=== PATIENT | female | born 1990 | race Caucasian/White ===

== ENCOUNTER 2019-05-01 13:37 | Emergency (ER) | payer OTHER, SELFPAY ==
[2019-05-01 13:49] VITALS: BP 119/65; PULSE 92; RESP 18; TEMP 36.6; O2SAT 96; BMI 28.3
--- NOTE | 2019-05-01 13:49 | ED_ITS ---
Entered by Luh Streeter, acting as scribe for Eduardo Haley DO May 01, 2019 13:37 HPI - SOB/Dyspnea General: Chief Complaint: General Medical, Adult Stated Complaint: congested Time Seen by Provider: 05/01/19 13:40 Source: patient Mode of arrival: ambulatory Limitations: no limitations History of Present Illness: HPI Narrative: 29 yo Female presents to ED with complaint of shortness of breath. Pt states that she has had a cough, cold, and congestion for about 2 weeks. Pt states that she has had clear and yellow mucus. MD elicited complaint: shortness of breath and cough Onset (ago): week(s) (2) Context: recent illness Timing: constant Severity: mild Exacerbating factors: nothing Relieving factors: nothing Associated symptoms: Reports chest congestion and cough Review of Systems General: Reports: 10 or more systems reviewed and unremarkable except in HPI and below ENMT: Reports: nasal discharge Resp: Reports: shortness of breath, productive cough (clear and yellow sputum) and chest congestion PFSH ED PFSH: Statuses (acute, chronic, etc) shown below reflect problem list status as previously entered and may not be historically accurate Social History Smoking and tobacco status: current every day smoker Physical Exam Const: COMMON NORMALS: no apparent distress, average body habitus, oriented x3, no limitations, healthy appearing, alert and well nourished HENMT: COMMON NORMALS: normocephalic, head/scalp atraumatic, hearing grossly normal bilaterally, external ears normal, EAC's normal, TM's normal bilaterally, external nose normal, nasal mucous membranes and turbinates normal, moist oral mucous membranes, oropharynx normal, dentition normal and gingiva normal HEAD & SCALP: normocephalic and atraumatic NOSE: external nose normal and nasal mucous membranes and turbinates normal EXTERNAL EAR: Yes external ears normal EXTERNAL AUDITORY CANAL: EAC's normal TYMPANIC MEMBRANE: TM's normal bilaterally Eye: COMMON NORMALS: PERRL, EOMs intact bilaterally, conjunctivae normal, no scleral icterus, no papilledema, normal visual luevano by confrontation and fundi normal bilaterally CONJUNCTIVA: Yes conjunctivae normal PUPIL: Yes PERRL DIRECT OPHTHALMOSCOPY: Yes no papilledema and Yes fundi normal bilaterally Neck/C-Spine: COMMON NORMALS: full ROM, no lymphadenopathy, supple, no meningeal signs, no JVD, thyroid normal and no carotid bruits THYROID: thyroid normal Chest: COMMONS NORMALS: inspection of chest normal and palpation of chest normal Resp: COMMON NORMALS: normal respiratory effort, no retractions, no use of acc essory muscles and percussion normal AUSCULTATION: diminished lung sounds (markedly diminished breath sounds on the left) on the left PERCUSSION: percussion normal Cardio: COMMON NORMALS: no JVD, regular rate, regular rhythm, S1 normal heart sound, S2 normal heart sound, no gallops, no clicks, no murmurs, no rub and peripheral pulses 2+ throughout RATE: regular rate RHYTHM: regular rhythm HEART SOUNDS: S1 normal and S2 normal PERIPHERAL PULSES: pulses 2+ throughout GI: COMMON NORMALS: normal to inspection, nondistended, normoactive bowel sounds, soft to palpation, non-tender, no hepatosplenomegaly, no masses and no bruits PALPATION: Yes soft and Yes no hepatosplenomegaly : COMMON NORMALS: Yes no CVA tenderness and Yes external appearance normal BLADDER/KIDNEY EXAM: Yes no CVA tenderness Back/Pelvis: COMMON NORMALS: no CVA tenderness, thoracic and lumbar spine normal to inspection, no thoracic nor lumbar tenderness, thoraco-lumbar ROM normal and straight leg raise negative bilaterally Extremity: COMMON NORMALS: normal to inspection, full ROM, normal capillary refill, no joint enlargement, no clubbing, cyanosis or edema, no calf tenderness and no pedal edema Neuro: COMMON NORMALS: oriented x3 SENSORIUM/ORIENTATION: Yes alert MENINGEAL SIGNS: Yes no meningeal signs Skin: COMMON NORMALS: no rashes or lesions noted, no wounds, skin turgor normal, no jaundice, no petechiae and no mottling GENERAL SKIN EXAM: no rashes or lesions noted and turgor normal Course Vital Signs: Vital signs: Vital Signs Temperature 97.9 F 05/01/19 13:49 Pulse Rate 92 05/01/19 13:49 Respiratory Rate 18 05/01/19 13:49 Blood Pressure 119/65 05/01/19 13:49 Pulse Oximetry 96 05/01/19 13:49 Discharge Plan Discharge Patient Disposition: Home, Self-Care Clinical Impression: Sinusitis, acute Qualifiers: Sinusitis location: unspecified location Recurrence: non-recurrent Qualified Code(s): J01.90 - Acute sinusitis, unspecified Upper respiratory infection Qualifiers: URI type: unspecified viral URI Qualified Code(s): J06.9 - Acute upper respiratory infection, unspecified Condition: Stable Prescriptions: New sulfamethoxazole-trimethoprim [Bactrim DS] 800-160 mg tablet 1 tab PO Q12H 10 Days Qty: 20 RF: 0 methylprednisolone [Medrol (Eric)] 4 mg tablets,dose pack See Rx Instructions .ROUTE .COMPLEX Qty: 21 RF: 0 No Action sertraline 100 mg tablet 200 mg PO BEDTIME RF: 0 lorazepam 1 mg tablet 1 mg PO Q8H PRN (Reason: Anxiety) RF: 0 propranolol 20 mg tablet 20 mg PO BID RF: 0 Discharge Orders: Discharge Order (Routine); Ordered 05/01/19 Ordered By: Eduardo Haley Referrals: Alon Galeano MD [Primary Care Provider] - Coding Level of Care Code ED Photographic Laboratory Technician for Chg Fwd Exam Problem Focused The documentation recorded by the Syl codrova Carmen, accurately reflects the service I personally performed and the decisions made by Tera leyva Donald P, DO May 01, 2019 13:37
--- NOTE | 2019-05-01 13:52 | XRR_ITS ---
PROCEDURE INFORMATION: Exam: XR Chest, 2 Views Exam date and time: 05/01/2019 2:08 PM Age: 29 years old Clinical indication: Cough; Additional info: Dyspnea TECHNIQUE: Imaging protocol: XR of the chest Views: 2 views. COMPARISON: CR Chest 1 [place] [id number] 03/15/2019 9:40 PM FINDINGS: Lungs: Unremarkable. No consolidation. Pleural space: Unremarkable. No pleural effusion. No pneumothorax. Heart/Mediastinum: Unremarkable. No cardiomegaly. Bones/joints: Unremarkable. XR/XR chest 2V* [id number] IMPRESSION: No acute findings.
--- NOTE | 2019-05-01 14:00 | PC.NURSE ---
Pt to xray
[2019-05-01 14:28] VITALS: BP 119/65; PULSE 92; RESP 18; TEMP 36.6; O2SAT 96
== END 2019-05-01 14:33 | disposition home or self-care (01) ==
PROVIDERS: Emergency Provider Family Medicine; Family Provider Family Medicine; PCP Family Medicine
DX: J01.90 Acute sinusitis, unspecified (principal); F17.210 Nicotine dependence, cigarettes, uncomplicated
CPT/HCPCS: 71046; 99281

== ENCOUNTER → 2019-05-30 16:00 | Outpatient (BNVA) | payer OTHER, SELFPAY | PROVIDERS: Family Provider Family Medicine; PCP Family Medicine; Visit Provider Nurse Practitioner | DX: R50.9 Fever, unspecified (principal); Z20.828 Contact with and (suspected) exposure to other viral communicable diseases | CPT/HCPCS: 87804 ==

== ENCOUNTER → 2020-03-13 14:28 | Outpatient (BNVA) | payer SELFPAY | PROVIDERS: Family Provider Family Medicine; PCP Family Medicine; Visit Provider Nurse Practitioner Family | DX: Z20.828 Contact with and (suspected) exposure to other viral communicable diseases (principal); J06.9 Acute upper respiratory infection, unspecified | CPT/HCPCS: 87635 ==

== ENCOUNTER 2020-03-18 16:48 | Emergency (ER) | payer OTHER, SELFPAY ==
[2020-03-18] VITALS (8 sets, daily range): BP systolic 109–132; BP diastolic 69–88; PULSE 92–133; RESP 12–20; TEMP 36.8; O2SAT 94–97; BMI 33.7
--- NOTE | 2020-03-18 17:02 | ECG_ITS ---
[facility] Test Date: 2020-03-18 Pat Name: Loly Kee Department: Room: Gender: Female Customer Service Clerk: : 1990 Requested By: Sinai Hoover Order Number: [id number] Digna MD: Hira You M.D. Measurements Intervals [place] Rate: 137 P: 69 UT: 116 QRS: 42 QRSD: 78 T: 49 QT: 330 QTc: 500 Interpretive Statements SINUS TACHYCARDIA WITH SHORT UT INTERVAL NONSPECIFIC ST & T-WAVE ABNORMALITY ABNORMAL RHYTHM ECG Compared to ECG 01/10/2019 13:53:31 Short UT interval now present Sinus rhythm no longer present T-wave abnormality still present Electronically Signed On 03-18-2020 18:37:47 [employer]EN[employer] REPAIRER by Hira You M.D. [id number]
--- NOTE | 2020-03-18 17:50 | ED_ITS ---
Documented by User: Lolita Linton 03/18/20 18:01 HPI - SOB/Dyspnea General: Chief Complaint: Shortness of Breath/Dyspnea Stated Complaint: SOB,nausea,cough Time Seen by Provider: 03/18/20 17:11 Source: patient Mode of arrival: ambulatory Limitations: no limitations History of Present Illness: HPI Narrative: Loly is a 30-year-old female who comes in complaining of a panic attack. Patient states she is recently switched from sertraline to Effexor and in the process is becoming more more prone to panic attacks. She states she feels anxious and scared. Patient also complains of intermittent left lower quadrant pain. She denies any vaginal discharge or bleeding. She denies any fevers or chills. Associated symptoms: Reports chest pain and palpitations; Deny abdominal pain, chest congestion, diaphoresis, dizziness, extremity pain, fever(s), hemoptysis, lightheadedness, nausea, orthopnea, syncope or vomiting Review of Systems Const: Denies: fever(s), chills, body aches, fatigue, malaise or diaphoresis Eyes: Denies: change in vision, blurry vision, photophobia, eye discomfort, eye discharge, eye redness or yellow eyes ENMT: Denies: throat pain, odynophagia, hoarseness, swelling of lips/tongue, ear or mastoid pain, ear discharge, change in hearing or nasal discharge Card: Reports: chest pain and palpitations; Denies: irregular heart rhythm, edema, lightheadedness, syncope, pre-syncope, dyspnea on exertion or orthopnea Resp: Denies: dyspnea, productive cough, non-productive cough, wheezing, hemoptysis or chest congestion GI: Denies: abdominal pain, nausea, vomiting, hematemesis, coffee ground emesis, heartburn, diarrhea, constipation, GI cramping, hematochezia or melena : Denies: flank pain, dysuria, urinary frequency, urinary urgency or hematuria Musc: Denies: neck pain, back pain, extremity pain, extremity swelling, joint pain, joint swelling, joint redness, joint warmth or joint stiffness Skin/Breast: Denies: rash, pruritus, erythema, skin pain or skin tenderness Neuro: Denies: headache(s), numbness in extremities, weakness in extremities, sensory changes, lack of coordination, difficulty walking, dizziness, vertigo, confusion, Slurred speech present or seizure-like activity César/Lymph: Denies: easy bruising, easy bleeding, petechiae, purpura or enlarged lymph nodes All/Imm: Denies: urticaria, throat swelling, tongue swelling, facial swelling or acute wheezing PFSH ED PFSH: Social History Smoking and tobacco status: current every day smoker Physical Exam Const: COMMON NORMALS: no acute distress, patient oriented x3, no limitations and alert GENERAL APPEARANCE: cooperative HENMT: COMMON NORMALS: normocephalic, atraumatic, external ears normal, EAC's normal and Normal external nose present HEAD & SCALP: normal to inspection, normocephalic and atraumatic FACE & SINUS: normal facial exam and face symmetric NOSE: Normal external nose present and Normal nares present EXTERNAL EAR: Yes external ears normal EXTERNAL AUDITORY CANAL: EAC's normal MOUTH: Normal oral and palatal mucosa present, lip normal and tongue normal Eye: COMMON NORMALS: Equal, round and reactive pupils present and conjunctivae normal GENERAL EYE: appearance normal, both eyes and all related structures ALIGNMENT: Yes alignment normal PERIORBITAL: periorbital findings normal EYELID: eyelids normal CONJUNCTIVA: Yes conjunctivae normal SCLERA: sclerae normal PUPIL: Yes Equal, round and reactive pupils present Neck/C-Spine: COMMON NORMALS: full ROM, no lymphadenopathy, supple, no meningeal signs and no JVD GENERAL: Yes normal visual inspection and Yes trachea midline Chest: COMMONS NORMALS: normal inspection of the chest and normal palpation of entire chest wall Resp: COMMON NORMALS: normal respiratory effort, No retractions, No use of accessory muscles and clear to auscultation bilaterally EFFORT & INSPECTION: Yes able to speak in complete sentences and Yes symmetric chest movement AUSCULTATION: clear to auscultation bilaterally, no crackles, no rales, no rhonchi and no wheezes Cardio: COMMON NORMALS: no JVD, regular rate, regular rhythm, S1 normal heart sound present and S2 normal heart sound present RATE: regular rate RHYTHM: regular rhythm HEART SOUNDS: S1 normal heart sound present, S2 normal heart sound present, no click, no gallops, no murmurs and no rubs GI: COMMON NORMALS: Soft to palpation and No hepatosplenomegaly present PALPATION: Yes Soft to palpation, No Tenderness to palpation present (GI), No Guarding due to palpation present (GI), No Rigid due to palpation, Yes No hepatosplenomegaly present, No Hernia present, No Palpable mass present and No Pulsatile mass present : COMMON NORMALS: Yes no CVA tenderness BLADDER/KIDNEY EXAM: Yes no CVA tenderness EXTERNAL FEMALE EXAM: No Hernia present Back/Pelvis: COMMON NORMALS: no CVA tenderness, thoracic and lumbar spine normal to inspection, no thoracic nor lumbar tenderness and thoraco-lumbar ROM normal Extremity: COMMON NORMALS: normal to inspection, full ROM, capillary refill normal, no joint enlargement, no clubbing, cyanosis or edema and no calf tenderness Neuro: COMMON NORMALS: patient oriented x3, CN's II-XII intact bilaterally, moves all extremities, no focal motor deficits and no sensory deficits noted SENSORIUM/ORIENTATION: Yes alert MENINGEAL SIGNS: Yes no meningeal signs SPEECH: speech normal Psych: COMMON NORMALS: mental status grossly normal, Normal thought process present, cooperative, normal affect, speech normal and activity/motor behavior normal SPEECH: Yes normal speech THOUGHT PROCESS: Normal thought process present Skin: COMMON NORMALS: no rashes or lesions noted, turgor normal, no jaundice, no petechiae and no mottling GENERAL SKIN EXAM: no rashes or lesions noted and turgor normal Course Vital Signs: Vital signs: Vital Signs Temperature 98.2 F 03/18/20 16:58 Pulse Rate 92 03/18/20 22:17 Respiratory Rate 16 03/18/20 22:17 Blood Pressure 117/76 03/18/20 22:17 Pulse Oximetry 97 03/18/20 22:17 MDM - SOB/Dyspnea Lab Data: Labs: Lab Results 03/18/20 03/18/20 03/18/20 Range/Units 18:20 18:20 18:20 WBC 16.4 H (4.0-10.0) 10^3/ uL RBC 4.78 (4.1-5.3) 10^6/u L Hgb 14.6 (11.5-15.3) g/dL Hct 43.4 (37.0-47.0) % MCV 90.8 (81-99) fL MCH 30.5 (28.0-34.0) pg MCHC 33.6 (30.0-36.0) g/dL RDW 13.0 (12.1-15.1) % Plt Count 352 (130-400) 10^3/c mm MPV 10.3 (7.4-10.4) fL Neut % (Auto) 76.5 % Lymph % (Auto) 15.7 % [place] % (Auto) 6.2 % Eos % (Auto) 0.8 % Baso % (Auto) 0.5 % Neut # (Auto) 12.55 H (1.8-7.7) 10^3/u L Lymph # (Auto) 2.6 (0.8-4.8) 10^3/u L [place] # (Auto) 1.0 H (0.2-0.9) 10^3/u L Eos # (Auto) 0.1 (0.0-0.8) 10^3/u L Baso # (Auto) 0.1 (0.0-0.1) 10^3/u L Nucleated RBC % (a uto) 0 % Nucleated RBCs # 0.0 /100WBC D-Dimer (0-0.59) ug/mIFE U Sodium 139 (136-145) mmol/L Potassium 3.9 (3.5-5.1) mmol/L Chloride 103 (98-107) mmol/L Carbon Dioxide 22 (22-29) mmol/L Anion Gap 17.9 (5-19) BUN 6 (6-20) mg/dL Creatinine 0.5 (0.5-0.9) mg/dL GFR Calculation 146.9 H (90-130) mL/min Glucose 95 (65-115) mg/dL Calculated Osmolal ity 285 (285-295) mOsm/k g Lactic Acid 0.9 (0.5-2.2) mmol/L Calcium 9.5 (8.5-10.5) mg/dL Magnesium 2.0 (1.7-2.3) mg/dL Total Bilirubin 0.3 (0.15-1.2) mg/dL AST 14 (0-32) U/L ALT 16 (0-33) U/L Alkaline Phosphata se 59 (35-105) IU/L Creatine Kinase 79 (26-192) U/L Troponin T Baselin e (0-10) ng/L Total Protein 7.1 (6.6-8.7) g/dL Albumin 4.8 (3.5-5.2) g/dL Globulin 2.3 (1.3-4.6) g/dL Lipase 17 (13-60) U/L TSH (0.27-4.20) uIU/ mL HCG, Qual (Negative) Urine Color (Yellow) Urine Appearance (CLEAR) Urine pH (5-7) Ur Specific Gravit y (1.005-1.030) Urine Protein (Negative) Urine Glucose (UA) (Normal) Urine Ketones (Negative) Urine Blood (Negative) Urine Nitrate (Negative) Urine Bilirubin (Negative) Urine Urobilinogen (Negative) mg/dL Ur Leukocyte Chana ase (Negative) Urine RBC (0-2) /hpf Urine WBC (0-5) /hpf Ur Squamous Epith Cells (0-5) /hpf Ur Transition Epit h Cell /hpf Amorphous Sediment Urine Bacteria (NONE) /hpf Urine Mucus /hpf Urine Yeast /hpf 03/18/20 03/18/20 03/18/20 Range/Units 18:20 18:20 18:23 WBC (4.0-10.0) 10^3/ uL RBC (4.1-5.3) 10^6/u L Hgb (11.5-15.3) g/dL Hct (37.0-47.0) % MCV (81-99) fL MCH (28.0-34.0) pg MCHC (30.0-36.0) g/dL RDW (12.1-15.1) % Plt Count (130-400) 10^3/c mm MPV (7.4-10.4) fL Neut % (Auto) % Lymph % (Auto) % [place] % (Auto) % Eos % (Auto) % Baso % (Auto) % Neut # (Auto) (1.8-7.7) 10^3/u L Lymph # (Auto) (0.8-4.8) 10^3/u L [place] # (Auto) (0.2-0.9) 10^3/u L Eos # (Auto) (0.0-0.8) 10^3/u L Baso # (Auto) (0.0-0.1) 10^3/u L Nucleated RBC % (a uto) % Nucleated RBCs # /100WBC D-Dimer (0-0.59) ug/mIFE U Sodium (136-145) mmol/L Potassium (3.5-5.1) mmol/L Chloride (98-107) mmol/L Carbon Dioxide (22-29) mmol/L Anion Gap (5-19) BUN (6-20) mg/dL Creatinine (0.5-0.9) mg/dL GFR Calculation (90-130) mL/min Glucose (65-115) mg/dL Calculated Osmolal ity (285-295) mOsm/k g Lactic Acid (0.5-2.2) mmol/L Calcium (8.5-10.5) mg/dL Magnesium (1.7-2.3) mg/dL Total Bilirubin (0.15-1.2) mg/dL AST (0-32) U/L ALT (0-33) U/L Alkaline Phosphata se (35-105) IU/L Creatine Kinase (26-192) U/L Troponin T Baselin e 6 (0-10) ng/L Total Protein (6.6-8.7) g/dL Albumin (3.5-5.2) g/dL Globulin (1.3-4.6) g/dL Lipase (13-60) U/L TSH (0.27-4.20) uIU/ mL HCG, Qual Negative (Negative) Urine Color Yellow (Yellow) Urine Appearance Sl hazy (CLEAR) Urine pH 6.0 (5-7) Ur Specific Gravit y 1.015 (1.005-1.030) Urine Protein Neg (Negative) Urine Glucose (UA) Norm (Normal) Urine Ketones 2+ H (Negative) Urine Blood 2+ H (Negative) Urine Nitrate Negative (Negative) Urine Bilirubin 1+ H (Negative) Urine Urobilinogen Norm (Negative) mg/dL Ur Leukocyte Chana ase 2+ H (Negative) Urine RBC 0-4 H (0-2) /hpf Urine WBC 0-4 H (0-5) /hpf Ur Squamous Epith Cells 15-25 H (0-5) /hpf Ur Transition Epit h Cell 40-55 /hpf Amorphous Sediment Not Reportable Urine Bacteria 1+ H (NONE) /hpf Urine Mucus 2+ /hpf Urine Yeast 1+ H /hpf 03/18/20 03/18/20 Range/Units 18:30 18:30 WBC (4.0-10.0) 10^3/ uL RBC (4.1-5.3) 10^6/u L Hgb (11.5-15.3) g/dL Hct (37.0-47.0) % MCV (81-99) fL MCH (28.0-34.0) pg MCHC (30.0-36.0) g/dL RDW (12.1-15.1) % Plt Count (130-400) 10^3/c mm MPV (7.4-10.4) fL Neut % (Auto) % Lymph % (Auto) % [place] % (Auto) % Eos % (Auto) % Baso % (Auto) % Neut # (Auto) (1.8-7.7) 10^3/u L Lymph # (Auto) (0.8-4.8) 10^3/u L [place] # (Auto) (0.2-0.9) 10^3/u L Eos # (Auto) (0.0-0.8) 10^3/u L Baso # (Auto) (0.0-0.1) 10^3/u L Nucleated RBC % (a uto) % Nucleated RBCs # /100WBC D-Dimer 0.41 (0-0.59) ug/mIFE U Sodium (136-145) mmol/L Potassium (3.5-5.1) mmol/L Chloride (98-107) mmol/L Carbon Dioxide (22-29) mmol/L Anion Gap (5-19) BUN (6-20) mg/dL Creatinine (0.5-0.9) mg/dL GFR Calculation (90-130) mL/min Glucose (65-115) mg/dL Calculated Osmolal ity (285-295) mOsm/k g Lactic Acid (0.5-2.2) mmol/L Calcium (8.5-10.5) mg/dL Magnesium (1.7-2.3) mg/dL Total Bilirubin (0.15-1.2) mg/dL AST (0-32) U/L ALT (0-33) U/L Alkaline Phosphata se (35-105) IU/L Creatine Kinase (26-192) U/L Troponin T Baselin e (0-10) ng/L Total Protein (6.6-8.7) g/dL Albumin (3.5-5.2) g/dL Globulin (1.3-4.6) g/dL Lipase (13-60) U/L TSH 0.75 (0.27-4.20) uIU/ mL HCG, Qual (Negative) Urine Color (Yellow) Urine Appearance (CLEAR) Urine pH (5-7) Ur Specific Gravit y (1.005-1.030) Urine Protein (Negative) Urine Glucose (UA) (Normal) Urine Ketones (Negative) Urine Blood (Negative) Urine Nitrate (Negative) Urine Bilirubin (Negative) Urine Urobilinogen (Negative) mg/dL Ur Leukocyte Chana ase (Negative) Urine RBC (0-2) /hpf Urine WBC (0-5) /hpf Ur Squamous Epith Cells (0-5) /hpf Ur Transition Epit h Cell /hpf Amorphous Sediment Urine Bacteria (NONE) /hpf Urine Mucus /hpf Urine Yeast /hpf Discharge Plan Discharge Patient Disposition: Home Clinical Impression: Viral URI Urinary tract infection Qualifiers: Urinary tract infection type: acute cystitis Hematuria presence: without hematuria Qualified Code(s): N30.00 - Acute cystitis without hematuria Condition: Stable Prescriptions: New Bactrim DS 800-160 mg tablet 1 tab PO DAILY 7 Days Qty: 14 RF: 0 No Action lorazepam 1 mg tablet 0.5 - 1 mg PO DAILY PRN (Reason: Anxiety) RF: 0 propranolol 20 mg tablet 20 mg PO BID RF: 0 venlafaxine 75 mg capsule,extended release 24hr 75 mg PO DAILY RF: 0 Tylenol Extra Strength 500 mg Tablet 500 mg PO PRN RF: 0 montelukast 10 mg tablet 10 mg PO DAILY RF: 0 Benadryl 1 cap PO PRN RF: 0 Mucinex 1 tab PO Q4H PRN (Reason: unknown) RF: 0 Discharge Orders: Discharge Order (Routine); Ordered 03/18/20 Ordered By: Alexi Leo Referrals: Alon Galeano MD [Primary Care Provider] - 4-7 days Discharge Diet: Advance as tolerated Discharge Activity: Increase activity as tolerated Patient Instructions: Urinary Tract Infection in Women (ED) Activity Restrictions/Additional Instructions: Return for fever greater than 100 despite 2-3 doses of antibiotics, vomiting liquids or medications, worsening shortness of breath despite treatment, other concerning symptoms. Your urine should be retested in a few days to ensure that your infection is clearing. Coding Level of Care Code ED Case Management Coordinator for Chg Fwd Exam Comprehensive Documented by User: Alexi Leo DO 03/19/20 01:18 HPI - SOB/Dyspnea General: Chief Complaint: Shortness of Breath/Dyspnea Stated Complaint: SOB,nausea,cough Time Seen by Provider: 03/18/20 17:11 PFSH ED PFSH: Social History Smoking and tobacco status: current every day smoker Course Vital Signs: Vital signs: Vital Signs Temperature 98.2 F 03/18/20 16:58 Pulse Rate 92 03/18/20 22:17 Respiratory Rate 16 03/18/20 22:17 Blood Pressure 117/76 03/18/20 22:17 Pulse Oximetry 97 03/18/20 22:17 MDM - SOB/Dyspnea MDM Narrative: Medical decision making narrative: 30-year-old female checked out to me at shift change by Dr. Menard. This young lady says that she has been short of breath for several days. She was tested for Covid by PCR couple of da ys ago, and testing was negative. She has no fever, she does have a leukocytosis, but without left shift. Her chest x-ray is negative. Her D-dimer is 0.4. She is tachycardic. Her troponin is negative. There are no ST changes on her EKG. She also complains of some left lower quadrant tenderness. She does have a urinary tract infection which will be treated. Lab Data: Labs: Lab Results 03/18/20 03/18/20 03/18/20 Range/Units 18:20 18:20 18:20 WBC 16.4 H (4.0-10.0) 10^3/ uL RBC 4.78 (4.1-5.3) 10^6/u L Hgb 14.6 (11.5-15.3) g/dL Hct 43.4 (37.0-47.0) % MCV 90.8 (81-99) fL MCH 30.5 (28.0-34.0) pg MCHC 33.6 (30.0-36.0) g/dL RDW 13.0 (12.1-15.1) % Plt Count 352 (130-400) 10^3/c mm MPV 10.3 (7.4-10.4) fL Neut % (Auto) 76.5 % Lymph % (Auto) 15.7 % [place] % (Auto) 6.2 % Eos % (Auto) 0.8 % Baso % (Auto) 0.5 % Neut # (Auto) 12.55 H (1.8-7.7) 10^3/u L Lymph # (Auto) 2.6 (0.8-4.8) 10^3/u L [place] # (Auto) 1.0 H (0.2-0.9) 10^3/u L Eos # (Auto) 0.1 (0.0-0.8) 10^3/u L Baso # (Auto) 0.1 (0.0-0.1) 10^3/u L Nucleated RBC % (a uto) 0 % Nucleated RBCs # 0.0 /100WBC D-Dimer (0-0.59) ug/mIFE U Sodium 139 (136-145) mmol/L Potassium 3.9 (3.5-5.1) mmol/L Chloride 103 (98-107) mmol/L Carbon Dioxide 22 (22-29) mmol/L Anion Gap 17.9 (5-19) BUN 6 (6-20) mg/dL Creatinine 0.5 (0.5-0.9) mg/dL GFR Calculation 146.9 H (90-130) mL/min Glucose 95 (65-115) mg/dL Calculated Osmolal ity 285 (285-295) mOsm/k g Lactic Acid 0.9 (0.5-2.2) mmol/L Calcium 9.5 (8.5-10.5) mg/dL Magnesium 2.0 (1.7-2.3) mg/dL Total Bilirubin 0.3 (0.15-1.2) mg/dL AST 14 (0-32) U/L ALT 16 (0-33) U/L Alkaline Phosphata se 59 (35-105) IU/L Creatine Kinase 79 (26-192) U/L Troponin T Baselin e (0-10) ng/L Total Protein 7.1 (6.6-8.7) g/dL Albumin 4.8 (3.5-5.2) g/dL Globulin 2.3 (1.3-4.6) g/dL Lipase 17 (13-60) U/L TSH (0.27-4.20) uIU/ mL HCG, Qual (Negative) Urine Color (Yellow) Urine Appearance (CLEAR) Urine pH (5-7) Ur Specific Gravit y (1.005-1.030) Urine Protein (Negative) Urine Glucose (UA) (Normal) Urine Ketones (Negative) Urine Blood (Negative) Urine Nitrate (Negative) Urine Bilirubin (Negative) Urine Urobilinogen (Negative) mg/dL Ur Leukocyte Chana ase (Negative) Urine RBC (0-2) /hpf Urine WBC (0-5) /hpf Ur Squamous Epith Cells (0-5) /hpf Ur Transition Epit h Cell /hpf Amorphous Sediment Urine Bacteria (NONE) /hpf Urine Mucus /hpf Urine Yeast /hpf 03/18/20 03/18/20 03/18/20 Range/Units 18:20 18:20 18:23 WBC (4.0-10.0) 10^3/ uL RBC (4.1-5.3) 10^6/u L Hgb (11.5-15.3) g/dL Hct (37.0-47.0) % MCV (81-99) fL MCH (28.0-34.0) pg MCHC (30.0-36.0) g/dL RDW (12.1-15.1) % Plt Count (130-400) 10^3/c mm MPV (7.4-10.4) fL Neut % (Auto) % Lymph % (Auto) % [place] % (Auto) % Eos % (Auto) % Baso % (Auto) % Neut # (Auto) (1.8-7.7) 10^3/u L Lymph # (Auto) (0.8-4.8) 10^3/u L [place] # (Auto) (0.2-0.9) 10^3/u L Eos # (Auto) (0.0-0.8) 10^3/u L Baso # (Auto) (0.0-0.1) 10^3/u L Nucleated RBC % (a uto) % Nucleated RBCs # /100WBC D-Dimer (0-0.59) ug/mIFE U Sodium (136-145) mmol/L Potassium (3.5-5.1) mmol/L Chloride (98-107) mmol/L Carbon Dioxide (22-29) mmol/L Anion Gap (5-19) BUN (6-20) mg/dL Creatinine (0.5-0.9) mg/dL GFR Calculation (90-130) mL/min Glucose (65-115) mg/dL Calculated Osmolal ity (285-295) mOsm/k g Lactic Acid (0.5-2.2) mmol/L Calcium (8.5-10.5) mg/dL Magnesium (1.7-2.3) mg/dL Total Bilirubin (0.15-1.2) mg/dL AST (0-32) U/L ALT (0-33) U/L Alkaline Phosphata se (35-105) IU/L Creatine Kinase (26-192) U/L Troponin T Baselin e 6 (0-10) ng/L Total Protein (6.6-8.7) g/dL Albumin (3.5-5.2) g/dL Globulin (1.3-4.6) g/dL Lipase (13-60) U/L TSH (0.27-4.20) uIU/ mL HCG, Qual Negative (Negative) Urine Color Yellow (Yellow) Urine Appearance Sl hazy (CLEAR) Urine pH 6.0 (5-7) Ur Specific Gravit y 1.015 (1.005-1.030) Urine Protein Neg (Negative) Urine Glucose (UA) Norm (Normal) Urine Ketones 2+ H (Negative) Urine Blood 2+ H (Negative) Urine Nitrate Negative (Negative) Urine Bilirubin 1+ H (Negative) Urine Urobilinogen Norm (Negative) mg/dL Ur Leukocyte Chana ase 2+ H (Negative) Urine RBC 0-4 H (0-2) /hpf Urine WBC 0-4 H (0-5) /hpf Ur Squamous Epith Cells 15-25 H (0-5) /hpf Ur Transition Epit h Cell 40-55 /hpf Amorphous Sediment Not Reportable Urine Bacteria 1+ H (NONE) /hpf Urine Mucus 2+ /hpf Urine Yeast 1+ H /hpf 03/18/20 03/18/20 Range/Units 18:30 18:30 WBC (4.0-10.0) 10^3/ uL RBC (4.1-5.3) 10^6/u L Hgb (11.5-15.3) g/dL Hct (37.0-47.0) % MCV (81-99) fL MCH (28.0-34.0) pg MCHC (30.0-36.0) g/dL RDW (12.1-15.1) % Plt Count (130-400) 10^3/c mm MPV (7.4-10.4) fL Neut % (Auto) % Lymph % (Auto) % [place] % (Auto) % Eos % (Auto) % Baso % (Auto) % Neut # (Auto) (1.8-7.7) 10^3/u L Lymph # (Auto) (0.8-4.8) 10^3/u L [place] # (Auto) (0.2-0.9) 10^3/u L Eos # (Auto) (0.0-0.8) 10^3/u L Baso # (Auto) (0.0-0.1) 10^3/u L Nucleated RBC % (a uto) % Nucleated RBCs # /100WBC D-Dimer 0.41 (0-0.59) ug/mIFE U Sodium (136-145) mmol/L Potassium (3.5-5.1) mmol/L Chloride (98-107) mmol/L Carbon Dioxide (22-29) mmol/L Anion Gap (5-19) BUN (6-20) mg/dL Creatinine (0.5-0.9) mg/dL GFR Calculation (90-130) mL/min Glucose (65-115) mg/dL Calculated Osmolal ity (285-295) mOsm/k g Lactic Acid (0.5-2.2) mmol/L Calcium (8.5-10.5) mg/dL Magnesium (1.7-2.3) mg/dL Total Bilirubin (0.15-1.2) mg/dL AST (0-32) U/L ALT (0-33) U/L Alkaline Phosphata se (35-105) IU/L Creatine Kinase (26-192) U/L Troponin T Baselin e (0-10) ng/L Total Protein (6.6-8.7) g/dL Albumin (3.5-5.2) g/dL Globulin (1.3-4.6) g/dL Lipase (13-60) U/L TSH 0.75 (0.27-4.20) uIU/ mL HCG, Qual (Negative) Urine Color (Yellow) Urine Appearance (CLEAR) Urine pH (5-7) Ur Specific Gravit y (1.005-1.030) Urine Protein (Negative) Urine Glucose (UA) (Normal) Urine Ketones (Negative) Urine Blood (Negative) Urine Nitrate (Negative) Urine Bilirubin (Negative) Urine Urobilinogen (Negative) mg/dL Ur Leukocyte Hcana ase (Negative) Urine RBC (0-2) /hpf Urine WBC (0-5) /hpf Ur Squamous Epith Cells (0-5) /hpf Ur Transition Epit h Cell /hpf Amorphous Sediment Urine Bacteria (NONE) /hpf Urine Mucus /hpf Urine Yeast /hpf Discharge Plan Discharge Patient Disposition: Home Clinical Impression: Viral URI Urinary tract infection Qualifiers: Urinary tract infection type: acute cystitis Hematuria presence: without hematuria Qualified Code(s): N30.00 - Acute cystitis without hematuria Condition: Stable Prescriptions: New Bactrim DS 800-160 mg tablet 1 tab PO DAILY 7 Days Qty: 14 RF: 0 No Action lorazepam 1 mg tablet 0.5 - 1 mg PO DAILY PRN (Reason: Anxiety) RF: 0 propranolol 20 mg tablet 20 mg PO BID RF: 0 venlafaxine 75 mg capsule,extended release 24hr 75 mg PO DAILY RF: 0 Tylenol Extra Strength 500 mg Tablet 500 mg PO PRN RF: 0 montelukast 10 mg tablet 10 mg PO DAILY RF: 0 Benadryl 1 cap PO PRN RF: 0 Mucinex 1 tab PO Q4H PRN (Reason: unknown) RF: 0 Discharge Orders: Discharge Order (Routine); Ordered 03/18/20 Ordered By: Alexi Leo Referrals: Alon Galeano MD [Primary Care Provider] - 4-7 days Discharge Diet: Advance as tolerated Discharge Activity: Increase activity as tolerated Patient Instructions: Urinary Tract Infection in Women (ED) Activity Restrictions/Additional Instructions: Return for fever greater than 100 despite 2-3 doses of antibiotics, vomiting liquids or medications, worsening shortness of breath despite treatment, other concerning symptoms. Your urine should be retested in a few days to ensure that your infection is clearing. Coding Level of Care Code ED Case Management Coordinator for Chg Fwd Exam Comprehensive
--- NOTE | 2020-03-18 18:17 | XRR_ITS ---
PROCEDURE INFORMATION: Exam: XR Chest, 1 View Exam date and time: 03/18/2020 6:32 PM Age: 30 years old Clinical indication: Cough and dyspnea TECHNIQUE: Imaging protocol: XR of the chest Views: 1 view. COMPARISON: CR XR chest 2V* [id number] 05/01/2019 2:05 PM FINDINGS: Lungs: Unremarkable. No consolidation. Pleural space: Unremarkable. No pleural effusion. No pneumothorax. Heart/Mediastinum: Unremarkable. No cardiomegaly. Bones/joints: No acute abnormality. XR/XR chest 1V portable [id number] IMPRESSION: No acute findings.
[2020-03-18 18:52] LABS: Basophils # 0.1 10^3/uL (0.0-0.1); Basophils % 0.5 %; Eosinophils # 0.1 10^3/uL (0.0-0.8); Eosinophils % 0.8 %; Hematocrit 43.4 % (37.0-47.0); Hemoglobin 14.6 g/dL (11.5-15.3); Lymphocytes # 2.6 10^3/uL (0.8-4.8); Lymphocytes % 15.7 %; Mean Corpuscular HGB Conc 33.6 g/dL (30.0-36.0); Mean Corpuscular Hemoglobin 30.5 pg (28.0-34.0); Mean Corpuscular Volume 90.8 fL (81-99); Mean Platelet Volume 10.3 fL (7.4-10.4); Monocytes % 6.2 %; Neutrophils # 12.55 10^3/uL (1.8-7.7); Neutrophils % 76.5 %; Nucleated Red Blood Cells % 0 %; Platelet Count 352 10^3/cmm (130-400); Red Blood Count 4.78 10^6/uL (4.1-5.3); White Blood Count 16.4 10^3/uL (4.0-10.0)
[2020-03-18] MEDS: LORazepam 2 mg/mL INJ 1 mL 1 MG IVP (18:52)
[2020-03-18 19:01] LABS: HCG, Serum Qual Negative (Negative)
[2020-03-18 19:10] LABS: Alanine Aminotransferase 16 U/L (0-33); Albumin Level 4.8 g/dL (3.5-5.2); Alkaline Phosphatase 59 IU/L (35-105); Anion Gap 17.9 (5-19); Aspartate Amino Transferase 14 U/L (0-32); Blood Urea Nitrogen 6 mg/dL (6-20); Calcium 9.5 mg/dL (8.5-10.5); Carbon Dioxide 22 mmol/L (22-29); Chloride 103 mmol/L (98-107); Creatine Phosphokinase 79 U/L (26-192); Globulin 2.3 g/dL (1.3-4.6); Glomerular Filtration Rate 146.9 mL/min (90-130); Glucose 95 mg/dL (65-115); Lipase 17 U/L (13-60); Osmolality Calculated 285 mOsm/kg (285-295); Potassium 3.9 mmol/L (3.5-5.1); Sodium 139 mmol/L (136-145); Total Bilirubin 0.3 mg/dL (0.15-1.2); Total Protein 7.1 g/dL (6.6-8.7)
[2020-03-18 19:11] LABS: Lactic Sepsis W/Reflex 0.9 mmol/L (0.5-2.2)
[2020-03-18 19:12] LABS: Troponin(5th) Baseline 6 ng/L (0-10)
[2020-03-18 19:53] LABS: D Dimer 0.41 ug/mIFEU (0-0.59)
--- NOTE | 2020-03-18 20:18 | ECG_ITS ---
[facility] Test Date: 2020-03-18 Pat Name: Loly Kee Department: Room: Gender: Female Automatic Edger: : 1990 Requested By: Lolita Restrepo Order Number: [id number] Digna MD: Hira You M.D. Measurements Intervals [place] Rate: 131 P: 67 PA: 142 QRS: 38 QRSD: 76 T: 5 QT: 333 QTc: 492 Interpretive Statements SINUS TACHYCARDIA NONSPECIFIC ST & T-WAVE ABNORMALITY ABNORMAL RHYTHM ECG Compared to ECG 03/18/2020 17:06:37 Short PA interval no longer present T-wave abnormality still present Electronically Signed On 03-19-2020 16:45:43 [employer] ARCHITECT by Hira You M.D. [id number]
[2020-03-18] MEDS: metoprolol tartrate 1 mg/1 mL SDV 5 mL 2.5 MG IV (21:09)
[2020-03-18 21:43] LABS: Add Urine Microscopic? YES; Bilirubin Urine 1+ (Negative); Blood Urine 2+ (Negative); Glucose Urine UA Norm (Normal); Ketones Urine 2+ (Negative); Leukocyte Esterase Urine 2+ (Negative); Nitrate Urine Negative (Negative); Protein Urine Neg (Negative); RBC Urine 0-4 /hpf (0-2); Specific Gravity, Urine 1.015 (1.005-1.030); Urine Appearance SL Hazy (CLEAR); Urine Color Yellow (Yellow); Urobilinogen Urine Norm (Negative)
[2020-03-18 21:44] LABS: Add Urine Culture? No; Bacteria Urine 1+ /hpf; Mucus Urine 2+ /hpf; Squamous Epithelial Cell Urine 15-25 /hpf (0-5); Transitional Epi Cells Urine 40-55 /hpf; WBC Urine 0-4 /hpf (0-5)
[2020-03-18] MEDS: sulfamethoxazole-trimeth DS 160-800 mg Tablet 1 TAB PO (22:17)
[2020-03-18 22:51] LABS: Thyroid Stimulating Hormone 0.75 uIU/mL (0.27-4.20)
== END 2020-03-18 22:18 | disposition home or self-care (01) ==
PROVIDERS: Emergency Medicine; Emergency Provider Emergency Medicine; PCP Family Medicine
DX: J06.9 Acute upper respiratory infection, unspecified (principal); N30.00 Acute cystitis without hematuria; F17.210 Nicotine dependence, cigarettes, uncomplicated
CPT/HCPCS: 12345; 71045; 80053; 81001; 82550; 83605; 83690; 83735; 84443; 84484; 84703; 85025; 85378; 93005; 96374; 96375; 99283; 99284; J2060; J3490

== ENCOUNTER 2020-06-16 23:21 | Emergency (ER) | payer OTHER, SELFPAY ==
[2020-06-16 23:25] VITALS: BP 129/70; PULSE 87; RESP 18; TEMP 36.8; O2SAT 98; BMI 33.7
[2020-06-16 23:27] VITALS: PULSE 87
--- NOTE | 2020-06-16 23:47 | XRR_ITS ---
PROCEDURE INFORMATION: Exam: XR Left Hand Exam date and time: 06/16/2020 11:48 PM Age: 30 years old Clinical indication: Pain; Hand; Left; Additional info: 4th digit pain; Contracture TECHNIQUE: Imaging protocol: XR Left hand. Views: 3 or more views. COMPARISON: No relevant prior studies available. FINDINGS: Bones/joints: Flexion seen at the 2nd through 5th digits may reflect underlying contracture or perhaps be due to positioning. Soft tissues: Soft tissue calcification seen along the palmar aspect of the 4th and 5th metacarpophalangeal joints likely reflecting sesamoid bones. XR/XR hand LT min 3V* [id number] IMPRESSION: 1. Negative for fracture or dislocation. 2. Flexion seen at the 2nd through 5th digits may reflect underlying contracture or perhaps be due to positioning.
--- NOTE | 2020-06-16 23:47 | W.ED.EXTPRO ---
Documented by User: CHATO Martinez 06/17/20 01:18 HPI - Extremity Problem General: Chief complaint: Extremity Problem,Nontraumatic Stated complaint: L HAND PAIN Time Seen by Provider: 06/16/20 23:30 Source: patient Mode of arrival: ambulatory Limitations: no limitations History of Present Illness: HPI Narrative: Patient is a 30-year-old female who presents to ED today with a complaint of left fourth digit pain that she noticed over the past 2 to 3 days. She has not had any injury or trauma to the extremity. She has not had any redness, swelling, warmth. She is not having any numbness, tingling, loss of sensation. No repetitive usage of hand. MD Complaint: extremity pain Onset (ago): day(s) Pain Consistency: constant Location: left and upper extremity Radiation: none Review of Systems Musc: Reports: extremity pain (L hand/4th digit pain); Denies: extremity swelling, joint redness or joint warmth Neuro: Denies: numbness in extremities or sensory changes PFSH ED PFSH: Social History Smoking and tobacco status: current every day smoker Female Reproductive History: Date of last menstrual period: 05/18/20 Physical Exam Const: COMMON NORMALS: no acute distress, average body habitus, patient oriented x3, no limitations, healthy appearing, alert and well nourished Extremity: OTHER: TTP to L 4th digit; digit is held in slight flexion; there is no redness, swelling, or warmth; no puncture mauro or evidence for trauma or infection; cap refill normal; sensory normal Neuro: COMMON NORMALS: patient oriented x3, moves all extremities, no focal motor deficits and no sensory deficits noted SENSORIUM/ORIENTATION: Yes alert Skin: COMMON NORMALS: no rashes or lesions noted GENERAL SKIN EXAM: no rashes or lesions noted Course Vital Signs: Vital signs: Vital Signs Temperature 98.3 F 06/16/20 23:25 Pulse Rate 82 06/17/20 00:33 Respiratory Rate 18 06/16/20 23:25 Blood Pressure 129/70 06/16/20 23:25 Pulse Oximetry 98 06/17/20 00:33 MDM - Extremity (Nontraumatic) MDM Narrative: Medical decision making narrative: No evidence for infectious tenosynovitis. XR showing possible calcification at the fourth MCP joint which would correspond to patient's symptoms. Spoke to Dr. Leo who feels patient may be having a calcific tendinitis. Patient requests that we place her in a splint for comfort. She was placed in an ulnar gutter and we will have her follow-up with orthopedics. Imaging Data^: XR L hand: My impression: NAD; bony/calcification noted at 4th MCP joint; could possibly represent calcific tendonitis; reviewed with Dr. Leo Discharge Plan Discharge Patient Disposition: Home Clinical Impression: Calcific tendonitis Condition: Stable Prescriptions: No Action clonazepam [Klonopin] 1 mg tablet 1 mg PO BID PRNRF: 0 sertraline 100 mg tablet 200 mg PO DAILY RF: 0 lorazepam 1 mg tablet 0.5 - 1 mg PO DAILY PRN (Reason: Anxiety) RF: 0 propranolol 20 mg tablet 20 mg PO BID RF: 0 Tylenol Extra Strength 500 mg Tablet 500 mg PO PRN RF: 0 montelukast 10 mg tablet 10 mg PO DAILY RF: 0 Benadryl 1 cap PO PRN RF: 0 Mucinex 1 tab PO Q4H PRN (Reason: unknown) RF: 0 Discharge Orders: Discharge ED (Routine); Ordered 06/17/20 Ordered By: Allie Romero Referrals: Alon Galeano MD [Primary Care Provider] - Patient Instructions: Opioid Safety Activity Restrictions/Additional Instructions: [facility] is committed to fighting the nationwide opiate epidemic. We are providing ALL patients with information regarding opiate safety. If you received opiate pain medication during your stay or if you received a prescription for opiate pain medication-please review this handout. If not, you may disregard. Thank you. Coding Level of Care Code ED Supervisor Graphite for Chg Fwd Exam Expanded Problem Focused Documented by User: Alexi Leo, 06/17/20 04:09 HPI - Extremity Problem General: Chief complaint: Extremity Problem,Nontraumatic Stated complaint: L HAND PAIN Time Seen by Provider: 06/16/20 23:30 PFSH ED PFSH: Social History Smoking and tobacco status: current every day smoker Course Vital Signs: Vital signs: Vital Signs Temperature 98.3 F 06/16/20 23:25 Pulse Rate 82 06/17/20 00:33 Respiratory Rate 18 06/16/20 23:25 Blood Pressure 129/70 06/16/20 23:25 Pulse Oximetry 98 06/17/20 00:33 MDM - Extremity (Nontraumatic) MDM Narrative: Medical decision making narrative: X-ray reviewed with Mrs. Romero?VICKY Joaquin. See above. I agree with her findings and treatment. Discharge Plan Discharge Patient Disposition: Home Clinical Impression: Calcific tendonitis Condition: Stable Prescriptions: No Action clonazepam [Klonopin] 1 mg tablet 1 mg PO BID PRNRF: 0 sertraline 100 mg tablet 200 mg PO DAILY RF: 0 lorazepam 1 mg tablet 0.5 - 1 mg PO DAILY PRN (Reason: Anxiety) RF: 0 propranolol 20 mg tablet 20 mg PO BID RF: 0 Tylenol Extra Strength 500 mg Tablet 500 mg PO PRN RF: 0 montelukast 10 mg tablet 10 mg PO DAILY RF: 0 Benadryl 1 cap PO PRN RF: 0 Mucinex 1 tab PO Q4H PRN (Reason: unknown) RF: 0 Discharge Orders: Discharge ED (Routine); Ordered 06/17/20 Ordered By: Allie Heather Referrals: Alon Galeano MD [Primary Care Provider] - Patient Instructions: Opioid Safety Activity Restrictions/Additional Instructions: [facility] is committed to fighting the nationwide opiate epidemic. We are providing ALL patients with information regarding opiate safety. If you received opiate pain medication during your stay or if you received a prescription for opiate pain medication-please review this handout. If not, you may disregard. Thank you. Coding Level of Care Code ED Supervisor Graphite for Jyoti Fwd Exam Expanded Problem Focused
[2020-06-17 00:33] VITALS: PULSE 82; O2SAT 98
--- NOTE | 2020-06-18 09:03 | DCPLANNER ---
Addendum entered by Flora Gee 06/27/20 15:07: Patient has a follow up appointment scheduled for Friday, August 21, 2020 at 3:00 at [facility]. Clinic will call patient with appointment information. Addendum entered by Flora Gee 06/22/20 11:44: trade show manager spoke with patient to confirm which facility that patient would want referral for a hand specialist to be sent to. Patient stated that she wanted the referral sent to [facility]. trade show manager faxed patients information to [facility], [facility] will call patient with appointment information. trade show manager will call for appointment information. Addendum entered by Flora Gee 06/19/20 12:20: Jennifer from ortho called special education case manager, stating that patient needs to follow up with a hand specialist. trade show manager called patient to speak with patient to see which facility patient would like for special education case manager to send the referral. trade show manager called patient at phone number [phone], unable to speak with patient at this time. A voicemail was left for patient to return case finishing machine adjuster phone call. Original Note: trade show manager had message to schedule a follow up appointment for patient with ortho. trade show manager called the ortho clinic, spoke with Jennifer, gave clinic patients information. trade show manager was told that the patients information would printed and reviewed. Clinic will call patient with appointment information.
== END 2020-06-17 00:35 | disposition home or self-care (01) ==
PROVIDERS: Emergency Provider Physician Assistant; PCP Family Medicine
DX: M65.242 Calcific tendinitis, left hand (principal); F17.210 Nicotine dependence, cigarettes, uncomplicated
CPT/HCPCS: 29125; 73130; 99283

== ENCOUNTER → 2021-01-16 12:46 | Outpatient (BNVA) | payer OTHER, SELFPAY | PROVIDERS: PCP Family Medicine; Visit Provider Registered Nurse Neonatal Intensive Care | DX: J02.0 Streptococcal pharyngitis (principal) | CPT/HCPCS: 87880 ==

== ENCOUNTER → 2021-07-30 10:45 | Outpatient (BNVA) | payer OTHER, SELFPAY | PROVIDERS: PCP Family Medicine; Visit Provider Registered Nurse Neonatal Intensive Care | DX: R50.9 Fever, unspecified (principal) | CPT/HCPCS: 87400 ==

== ENCOUNTER 2021-11-10 19:10 | Emergency (ER) | payer SELFPAY ==
[2021-11-10 19:25] VITALS: BP 123/82; PULSE 97; RESP 18; TEMP 36.7; O2SAT 98; BMI 36.3
--- NOTE | 2021-11-10 20:03 | ED_ITS ---
HPI - Neck Pain/Injury General: Chief Complaint: Neck Pain/Injury Stated Complaint: Injury Neck Pain Time Seen by Provider: 11/10/21 19:39 History of Present Illness: Patient is a 31-year-old female who comes to the ED with right-sided neck pain. Symptoms started yesterday after she was playing around with her son in the pool and picked him up and threw him in the water. She felt the pain on the right side of her neck. Today the pain is gotten worse. Pain starts on the right side of the neck and radiates down into right shoulder. Endorses some pain with neck movements. Rates the pain currently a 7 out of 10. Associated symptoms: Denies headache(s) or nausea Review of Systems Const: Denies: fever(s), chills or fatigue Eyes: Denies: change in vision or eye discomfort ENMT: Denies: throat pain, odynophagia, nasal discharge or nasal congestion Card: Denies: chest pain, palpitations, edema, swelling of feet/ankles, dyspnea on exertion or orthopnea Resp: Denies: dyspnea, productive cough or non-productive cough GI: Denies: abdominal pain, nausea, vomiting, diarrhea, constipation or hematochezia : Denies: flank pain, dysuria or hematuria Musc: Reports: neck pain; Denies: back pain or extremity swelling Skin/Breast: Denies: rash or new lesions Neuro: Denies: headache(s), numbness in extremities or weakness in extremities [facility] ED PFSH: Medical History No pertinent family history Surgical History No pertinent past surgical history Social History Smoking and tobacco status: current every day smoker Female Reproductive History: Date of last menstrual period: 10/27/21 Physical Exam Const: COMMON NORMALS: no acute distress, patient oriented x3, healthy appearing and alert GENERAL APPEARANCE: cooperative and comfortable HENMT: COMMON NORMALS: normocephalic HEAD & SCALP: normocephalic MOUTH: Normal oral and palatal mucosa present THROAT: posterior oropharynx normal and uvula midline Neck/C-Spine: COMMON NORMALS: supple GENERAL: Yes normal visual inspection CERVICAL SPINE: Yes cervical ROM normal, Yes pain with cervical ROM, No Cervical spine tenderness, Yes Paracervical muscle tenderness right and Yes Trapezius muscle tenderness right Resp: COMMON NORMALS: normal respiratory effort, No retractions, No use of accessory muscles and clear to auscultation bilaterally AUSCULTATION: clear to auscultation bilaterally Cardio: COMMON NORMALS: regular rate, regular rhythm, S1 normal heart sound present, S2 normal heart sound present, No gallops present (Cardio), No clicks present (Cardio), No murmurs present (Cardio) and Peripheral pulses 2+ throughou t RATE: regular rate RHYTHM: regular rhythm HEART SOUNDS: S1 normal heart sound present and S2 normal heart sound present PERIPHERAL PULSES: Peripheral pulses 2+ throughout GI: COMMON NORMALS: Normal to inspection, nondistended, normoactive bowel sounds present, Soft to palpation, non-tender and no masses PALPATION: Yes Soft to palpation : COMMON NORMALS: Yes no CVA tenderness BLADDER/KIDNEY EXAM: Yes no CVA tenderness Back/Pelvis: COMMON NORMALS: no CVA tenderness Extremity: COMMON NORMALS: normal to inspection and full ROM Neuro: COMMON NORMALS: patient oriented x3 and moves all extremities SENSORIUM/ORIENTATION: Yes alert Skin: GENERAL SKIN EXAM: dry skin Course Vital Signs: Vital signs: Vital Signs Temperature 98.1 F 11/10/21 19:25 Pulse Rate 97 11/10/21 19:25 Respiratory Rate 18 11/10/21 19:25 Blood Pressure 123/82 11/10/21 19:25 Pulse Oximetry 98 11/10/21 19:25 MDM - Neck Pain/Injury Medical Decision Making Patient is a 31-year-old female comes to the ED with right-sided neck pain. Symptoms started yesterday after she was playing with their child and pool and throwing them around in the water. Vitals are stable. Patient appears nontoxic in no acute distress. She has palpable right trapezius muscle tenderness and right sided paracervical muscle tenderness. Patient diagnosed with strain of neck muscle and was given a dose of Toradol and Norflex here in the ED. She was discharged home with a prescription for Celebrex and a muscle relaxer. Told to follow-up with PCP in the next week for reevaluation. Return to ED precautions given. Patient is to agree with plan. Discharge Plan Discharge Patient Disposition: Home Clinical Impression: Strain of neck muscle Qualifiers: Encounter type: initial encounter Qualified Code(s): S16.1XXA - Strain of muscle, fascia and tendon at neck level, initial encounter Condition: Stable Prescriptions: New Celebrex 100 mg capsule 100 mg PO BID PRN (Reason: pain) Qty: 20 0RF cyclobenzaprine 5 mg tablet 5 mg PO BID PRN (Reason: muscle spasm) Qty: 20 0RF No Action clonazepam [Klonopin] 1 mg tablet 1 mg PO BID PRN0RF sertraline 100 mg tablet 200 mg PO DAILY 0RF montelukast 10 mg tablet 10 mg PO DAILY Qty: 30 0RF amoxicillin-pot clavulanate 875-125 mg tablet 1 tab PO BID 7 Days Qty: 14 0RF lorazepam 1 mg tablet 0.5 - 1 mg PO DAILY PRN (Reason: Anxiety) 0RF propranolol 20 mg tablet 20 mg PO BID 0RF Rx Instructions: pt states she stop taking this medication for about 2 weeks and restarted last night-ext med history shows last filled 12/14/2019 30d/s Tylenol Extra Strength 500 mg Tablet 500 mg PO PRN 0RF Benadryl 1 cap PO PRN 0RF Mucinex 1 tab PO Q4H PRN (Reason: unknown) 0RF Discharge Orders: Discharge ED (Routine); Ordered 11/10/21 Ordered By: Petar Juan Referrals: Alon Galeano MD [Primary Care Provider] - Discharge Diet: Regular Discharge Activity: Increase activity as tolerated Patient Instructions: Muscle Strain (ED), Acute Neck Pain (ED) Activity Restrictions/Additional Instructions: Follow-up with medical provider as directed in the next 7 to 10 days for reevaluation. Take medications as prescribed. Cyclobenzaprine is a muscle relaxer and can cause some drowsiness so take at night before going to bed. If you get a take cyclobenzaprine during the day use with caution. Return to the ER or your medical provider if condition worsens. Please read and understand discharge instructions. Thank you for choosing [facility] for your healthcare needs today. Please realize this is an emergency room and that we are providing you with a medical screening exam and this may not be complete and all inclusive of all the testing and or work up that you may need to determine your ailment or severity of your illness. It is very important that you follow up as instructed or that you return to the Emergency Department should you have concerns or if your condition changes or worsens in any way. Coding Level of Care Code ED Hand Mixer for Jyoti Rossi Exam Comprehensive
[2021-11-10] MEDS: orphenadrine 30 mg/mL Inj 2 mL 60 MG IM (20:47)
[2021-11-10] MEDS: ketorolac 60 mg/2 mL INJ IM (20:47)
== END 2021-11-10 20:54 | disposition home or self-care (01) ==
PROVIDERS: Emergency Provider Physician Assistant; PCP Family Medicine
DX: S16.1XXA Strain of muscle, fascia and tendon at neck level, initial encounter (principal); F17.210 Nicotine dependence, cigarettes, uncomplicated; X50.0XXA Overexertion from strenuous movement or load, initial encounter
CPT/HCPCS: 96372; 99284; J1885; J2360

== ENCOUNTER → 2022-04-02 10:38 | Outpatient (BNVA) | payer SELFPAY | PROVIDERS: PCP Family Medicine; Visit Provider Emergency Medicine | DX: N39.0 Urinary tract infection, site not specified (principal) | CPT/HCPCS: 81000 ==

== ENCOUNTER 2022-05-22 08:57 | Emergency (ER) | payer SELFPAY ==
[2022-05-22 09:01] VITALS: BP 143/86; PULSE 136; RESP 16; TEMP 36.6; O2SAT 99; BMI 34.4
--- NOTE | 2022-05-22 09:17 | XR_ITS ---
WS: [id number] Exam: XR chest 1V portable [id number] Date/Time of Exam: 05/22/2022 9:18 AM Reason For Exam: epigastric pain Comparison 03/18/2020. Findings: The lungs are clear and fully expanded. Costophrenic angles are sharp. No infiltrates. Bronchovascula r relief appears normal. Cardiac silhouette is unremarkable. Bony elements are intact. The mediastinu m is normal in contour. XR/XR chest 1V portable [id number] IMPRESSION: Unremarkable chest radiograph.
--- NOTE | 2022-05-22 09:17 | W.ED.ABDPA2 ---
HPI - Abdominal Pain General: Chief Complaint: Abdominal Pain Stated Complaint: squeezing feeling in upper abd Time Seen by Provider: 05/22/22 08:59 Source: patient Mode of arrival: ambulatory Limitations: no limitations History of Present Illness: Patient is a 32-year-old female presents to ED today with a complaint of epigastric pain over the past 2 days. She states pain is intermittent and describes it as a squeezing sensation. She states pain seems to be worse when she bends over. Has not noticed symptoms affected by eating. She states she does have a history of GERD and used to take medication for this but no longer does. She is not having any nausea, vomiting, or changes in bowel movements. She denies chest pain, shortness of breath, difficulty breathing, palpitations, lightheadedness/dizziness. MD elicited complaint: abdominal pain Pertinent past history: other (GERD) Onset (ago): day(s) Pain Consistency: intermittent Location: Epigastric Severity: mild Pain scale (0-10): 2 Quality: other (squeezing) Radiation: none Migration to: no migration Exacerbating factors: other (bending over) Associated Symptoms: Reports heartburn; Denies chills, diarrhea, dysuria, fever(s), hematuria, nausea and vomiting Related Data: Date of Last Menstrual Period: 10/27/21 Patient : No Review of Systems Const: Denies: fever(s), chills, body aches, fatigue or malaise Card: Denies: chest pain Resp: Denies: dyspnea GI: Reports: abdominal pain and heartburn; Denies: nausea, vomiting or diarrhea : Denies: flank pain, dysuria or hematuria Musc: Denies: back pain Skin/Breast: Denies: rash Neuro: Denies: headache(s) or dizziness [facility] ED PFSH: Medical History No pertinent family history Surgical History No pertinent past surgical history Social History Smoking and tobacco status: current every day smoker Female Reproductive History: Date of last menstrual period: 10/27/21 Physical Exam Const: COMMON NORMALS: no acute distress, patient oriented x3, no limitations, alert and well nourished GENERAL APPEARANCE: cooperative ORIENTATION/CONSCIOUSNESS: Yes awake, Yes oriented to person, Yes oriented to place and Yes oriented to time HENMT: COMMON NORMALS: normocephalic and atraumatic HEAD & SCALP: normocephalic and atraumatic Resp: COMMON NORMALS: normal respiratory effort and clear to auscultation bilaterally AUSCULTATION: clear to auscultation bilaterally Cardio: COMMON NORMALS: regular rhythm RATE: tachycardic (states she doesn't like hospitals and is anxious) RHYTHM: regular rhythm GI: COMMON NORMALS: Normal to inspection, nondistended, normoactive bowel sounds present, Soft to palpation, No hepatosplenomegaly present and no masses INSPECTION: Yes normal to inspection AUSCULTATION: Yes normoactive bowel sounds PALPATION: Yes Soft to palpation, Yes Tenderness to palpation present (GI) (epigastric), No Guarding due to palpation present (GI), No Rigid due to palpation and Yes No hepatosplenomegaly present : COMMON NORMALS: Yes no CVA tenderness BLADDER/KIDNEY EXAM: Yes no CVA tenderness Back/Pelvis: COMMON NORMALS: no CVA tenderness Extremity: COMMON NORMALS: normal to inspection and capillary refill normal GENERAL: Yes normal exam except as noted Neuro: JUSTUS COMA SCALE: document GCS findings Justus coma scale eye opening: Spontaneous [place] coma scale verbal response: Orientated [place] coma scale motor response: Obey commands [place] coma scale total score: 15 COMMON NORMALS: patient oriented x3 SENSORIUM/ORIENTATION: Yes alert, Yes oriented to person, Yes oriented to place and Yes oriented to time Skin: COMMON NORMALS: no rashes or lesions noted GENERAL SKIN EXAM: no rashes or lesions noted Course Vital Signs: Vital signs: Vital Signs Temperature 97.8 F 05/22/22 09:01 Pulse Rate 120 H 05/22/22 09:35 Respiratory Rate 16 05/22/22 09:01 Blood Pressure 119/71 05/22/22 11:06 Pulse Oximetry 100 05/22/22 11:06 Oxygen Delivery Me thod 05/22/22 11:06 MDM - Abdominal Pain Medical Decision Making Pain almost immediately improved after administration of GI cocktail. Vital signs are stable apart from some tachycardia that patient states is anxiety related because she does not like hospitals. This did improve during her stay and on upon re-examination heart rate was 102. Blood work including CBC, CMP, lipase are unremarkable. Recommend patient begin taking her GERD medication again (states she was taking an H2 lupe) and begin on a PPI as well x 2 weeks. Follow up with PCP if symptoms to not improve. Return to ED precautions discussed. Lab Data 05/22/22 09:58 05/22/22 11:16 Labs/Radiology: Radiology Impressions Chest X-Ray 05/22/22 09:17 IMPRESSION: Unremarkable chest radiograph. Laboratory Results WBC 12.8 10^3/uL (4.0-10.0) H 05/22/22 09:58 RBC 4.87 10^6/uL (4.1-5.3) 05/22/22 09:58 Hgb 14.6 g/dL (11.5-15.3) 05/22/22 09:58 Hct 44.6 % (37.0-47.0) 05/22/22 09:58 MCV 91.6 fl (81-99) 05/22/22 09:58 MCH 30.0 pg (28.0-34.0) 05/22/22 09:58 MCHC 32.7 g/dL (30.0-36.0) 05/22/22 09:58 RDW 14.0 % (12.1-15.1) 05/22/22 09:58 Plt Count 368 10^3/cmm (130-400) 05/22/22 09:58 MPV 10.4 fL (7.4-10.4) 05/22/22 09:58 Neut % (Auto) 76.5 % 05/22/22 09:58 Lymph % (Auto) 16.2 % 05/22/22 09:58 Bertie % (Auto) 5.9 % 05/22/22 09:58 Eos % (Auto) 0.7 % 05/22/22 09:58 Baso % (Auto) 0.4 % 05/22/22 09:58 Neut # (Auto) 9.80 10^3/uL (1.8-7.7) H 05/22/22 09:58 Lymph # (Auto) 2.1 10^3/uL (0.8-4.8) 05/22/22 09:58 Bertie # (Auto) 0.8 10^3/uL (0.2-0.9) 05/22/22 09:58 Eos # (Auto) 0.1 10^3/uL (0.0-0.8) 05/22/22 09:58 Baso # (Auto) 0.1 10^3/uL (0.0-0.1) 05/22/22 09:58 Nucleated RBC % (auto) 0 % 05/22/22 09:58 Nucleated RBCs # 0.0 /100WBC 05/22/22 09:58 Sodium 139 mmol/L (136-145) 05/22/22 11:16 Potassium 4.4 mmol/L (3.5-5.1) 05/22/22 11:16 Chloride 103 mmol/L (98-107) 05/22/22 11:16 Carbon Dioxide 21 mmol/L (22-29) L 05/22/22 11:16 Anion Gap 19.4 (5-19) H 05/22/22 11:16 BUN 7 mg/dL (6-20) 05/22/22 11:16 Creatinine 0.6 mg/dL (0.5-0.9) 05/22/22 11:16 GFR Calculation 117.4 mL/min (90-130) 05/22/22 11:16 Glucose 90 mg/dL (65-115) 05/22/22 11:16 Calculated Osmolality 286 mOsm/kg (285-295) 05/22/22 11:16 Calcium 9.5 mg/dL (8.5-10.5) 05/22/22 11:16 Total Bilirubin 0.4 mg/dL (0.15-1.2) 05/22/22 11:16 AST 28 U/L (0-32) 05/22/22 11:16 ALT 46 U/L (0-33) H 05/22/22 11:16 Alkaline Phosphatase 73 U/L (35-105) 05/22/22 11:16 Total Protein 7.8 g/dL (6.6-8.7) 05/22/22 11:16 Albumin 4.7 g/dL (3.5-5.2) 05/22/22 11:16 Globulin 3.1 g/dL (1.3-4.6) 05/22/22 11:16 Lipase 20 U/L (13-60) 01/26/23 11:16 Discharge Plan Discharge Patient Disposition: Home Clinical Impression: Epigastric abdominal pain Condition: Stable Prescriptions: No Action clonazepam [Klonopin] 1 mg tablet 1 mg PO BID PRN sertraline 100 mg tablet 200 mg PO DAILY buspirone 10 mg tablet 10 mg PO BID cyclobenzaprine 10 mg tablet 10 mg PO TID PRN (Reason: muscle spasm) Qty: 20 0RF ciprofloxacin HCl [Cipro] 500 mg tablet 500 mg PO BID 5 Days Qty: 10 0RF Tylenol Extra Strength 500 mg Tablet 500 mg PO PRN Benadryl 1 cap PO PRN Mucinex 1 tab PO Q4H PRN (Reason: unknown) Discharge Orders: Discharge ED (Routine); Ordered 05/22/22 Ordered By: Allie Romero Referrals: Alon Galeano MD [Primary Care Provider] - Patient Instructions: Abdominal Pain (ED) Activity Restrictions/Additional Instructions: As we discussed begin taking an acid tree faller medication such as Zantac or Pepcid daily in addition to proton pump inhibitor dedication such as Omeprazole or Pantoprazole. These medications are available [id number]. Please follow-up with primary care in 1 to 2 weeks if they do not seem to be helping with symptoms. You may also avoid spicy or acidic foods. Avoid lying flat after eating. Return to the emergency department for severe or uncontrollable abdominal pain, repetitive episodes of vomiting, fevers, severe chest pain or back pain, or any other concerns you may have. Coding Level of Care Code ED Payroll Human Resources Assistant for Jyoti Rossi Exam Comprehensive
[2022-05-22] MEDS: lidocaine 2% viscous 15 ML, aluminum-mag hydrox-simethicon 30 ML, sucralfate oral liq 1 GM PO (09:33)
[2022-05-22 09:35] VITALS: BP 120/62; PULSE 120; O2SAT 98
[2022-05-22 10:04] LABS: Basophils # 0.1 10^3/uL (0.0-0.1); Basophils % 0.4 %; Eosinophils # 0.1 10^3/uL (0.0-0.8); Eosinophils % 0.7 %; Hematocrit 44.6 % (37.0-47.0); Hemoglobin 14.6 g/dL (11.5-15.3); Lymphocytes # 2.1 10^3/uL (0.8-4.8); Lymphocytes % 16.2 %; Mean Corpuscular HGB Conc 32.7 g/dL (30.0-36.0); Mean Corpuscular Volume 91.6 fl (81-99); Mean Platelet Volume 10.4 fL (7.4-10.4); Monocytes # 0.8 10^3/uL (0.2-0.9); Monocytes % 5.9 %; Neutrophils % 76.5 %; Nucleated Red Blood Cells % 0 %; Platelet Count 368 10^3/cmm (130-400); Red Blood Count 4.87 10^6/uL (4.1-5.3); White Blood Count 12.8 10^3/uL (4.0-10.0)
[2022-05-22 11:06] VITALS: BP 119/71; O2SAT 100
[2022-05-22 11:54] LABS: Alanine Aminotransferase 46 U/L (0-33); Albumin Level 4.7 g/dL (3.5-5.2); Alkaline Phosphatase 73 U/L (35-105); Blood Urea Nitrogen 7 mg/dL (6-20); Calcium 9.5 mg/dL (8.5-10.5); Carbon Dioxide 21 mmol/L (22-29); Chloride 103 mmol/L (98-107); Globulin 3.1 g/dL (1.3-4.6); Glomerular Filtration Rate 117.4 mL/min (90-130); Glucose 90 mg/dL (65-115); Lipase 20 U/L (13-60); Osmolality Calculated 286 mOsm/kg (285-295); Sodium 139 mmol/L (136-145); Total Bilirubin 0.4 mg/dL (0.15-1.2); Total Protein 7.8 g/dL (6.6-8.7)
[2022-05-22 11:55] LABS: Anion Gap 19.4 (5-19); Aspartate Amino Transferase 28 U/L (0-32); Potassium 4.4 mmol/L (3.5-5.1)
[2022-05-22 12:16] VITALS: PULSE 95; RESP 18; O2SAT 99
== END 2022-05-22 12:17 | disposition home or self-care (01) ==
PROVIDERS: Emergency Provider Physician Assistant; PCP Family Medicine
DX: R10.13 Epigastric pain (principal); F17.210 Nicotine dependence, cigarettes, uncomplicated
CPT/HCPCS: 36415; 71045; 80053; 83690; 85025; 99284

== ENCOUNTER → 2022-10-24 14:00 | Outpatient (BNVA) | payer SELFPAY | PROVIDERS: PCP Family Medicine; Visit Provider Family Medicine | DX: E05.90 Thyrotoxicosis, unspecified without thyrotoxic crisis or storm (principal); Z01.419 Encounter for gynecological examination (general) (routine) without abnormal findings | CPT/HCPCS: 84439; 84443; 87491; 87591; 87624 ==